=== PATIENT | male | born 1955 | race Caucasian/White ===

== ENCOUNTER 2017-12-05 07:42 | Emergency (ER) | payer BC ==
[~2017-12-05] VITALS: Ht 193 cm; Wt 127.0 kg
[2017-12-05] MEDS ORDERED: CIPROFLOXACN750 MG PO (08:31)
[2017-12-05] MEDS ORDERED: CETRAXAL0.2 % OT (08:31)
[2017-12-05] MEDS ORDERED: MOTRIN800 MG PO (08:31)
[2017-12-05 09:11] VITALS: BP 135/74
== END 2017-12-05 09:11 | disposition home or self-care (01) | DRG 156 ==
LOC: ED 07:42
DX: H60.501 Unspecified acute noninfective otitis externa, right ear (principal); B96.5 Pseudomonas (aeruginosa) (mallei) (pseudomallei) as the cause of diseases classified elsewhere; E11.9 Type 2 diabetes mellitus without complications